=== PATIENT | male | born 1960 | race Caucasian/White ===

== ENCOUNTER 2021-05-22 09:56 | Emergency (ER) | payer OTHER ==
[2021-05-22 11:59] LABS: BASOPHIL 0.2 % (0-2); EOSINOPHIL 1.3 % (0-5); HCT 46.9 % (42.0-52.0); HGB 16.3 g/dl (13.2-18.0); LYMPHOCYTE 5.7 % (15-48); MCH 31.4 pg (25.0-31.0); MCHC 34.8 g/dL (32.0-36.0); MCV 90.4 fL (78.0-100.0); MONOCYTE 6.2 % (0-12); MPV 9.3 fL (6.0-9.5); NEUTROPHIL 86.1 % (41-80); NRBC 0; PLT 317 K/uL (150-400); RBC 5.19 M/uL (4.70-6.00); RDW 12.4 % (11.5-14.0); WBC 15.5 K/uL (4.0-10.5)
[2021-05-22 12:23] LABS: BILIRUBIN - TOTAL 0.3 mg/dL (0.2-1.0); BUN/CREAT RATIO (CALC) 9.9 RATIO; CREATININE 1.42 mg/dL (0.67-1.17); GLOBULIN (CALCULATION) 3.9 g/dL; PHOSPHORUS 2.9 mg/dL (2.6-4.7); POTASSIUM 3.5 mmol/L (3.5-5.1); TOTAL PROTEIN 7.9 g/dL (6.4-8.2)
[2021-05-22 13:24] LABS: BILIRUBIN NEGATIVE (NEGATIVE); BLOOD NEGATIVE Ery/uL (NEGATIVE); CLARITY CLEAR (CLEAR); COLOR YELLOW (YELLOW); GLUCOSE (U) NORMAL (NORMAL); LEUKOCYTES NEGATIVE Leu/uL (NEGATIVE); NITRITE NEGATIVE (NEGATIVE); PROTEIN NEGATIVE (NEGATIVE); SPECIFIC GRAVITY 1.015 (1.001-1.030); UROBILINOGEN 0.2 mg/dL (0.2-1.0)
[2021-05-22 14:47] LABS: LACTIC ACID 1.2 mmol/L (0.4-1.9)
== END 2021-05-22 16:07 | disposition home or self-care (01) ==
LOC: FER 09:56
PROVIDERS: Emergency Medicine; Nurse Practitioner Family
DX: K80.20 Calculus of gallbladder without cholecystitis without obstruction (principal); N13.30 Unspecified hydronephrosis; I10 Essential (primary) hypertension; Z79.899 Other long term (current) drug therapy
CPT/HCPCS: 36415; 80053; 81003; 83605; 84100; 85025; 96374; 96375; J1885; J2405; J7030